=== PATIENT | female | born 1940 | race Caucasian/White ===

== ENCOUNTER 2019-08-18 10:37 | Emergency (ER) | payer OTHER ==
[2019-08-18 11:15] VITALS: BP 93/52
--- NOTE | 2019-08-18 12:15 | UC ---
Skin Complaint HPI - HPI Summary HPI Summary: patient had second Shingrix vacc 4 days ago () and by that night her arm was starting to get red at injection site over next 2 days she developed fever and redness/swelling/warmth got worse she did not have an issue with first Shingrix inj she has had cellulitis in past that cleared with clindamycin and Bactroban ointment - History of Current Complaint Chief Complaint: [facility] Time Seen by Provider: 08/18/19 12:05 Stated Complaint: ARM INJURY AFTER INJECTION Hx Obtained From: Patient Onset/Duration: Gradual Onset Current Severity: None Pain Intensity: 0 Aggravating Factor(s): Touch Alleviating Factor(s): Nothing Associated Signs & Symptoms: Positive: Fever. Negative: Numbness, Weakness, Chills - Allergy/Home Medications Allergies/Adverse Reactions: Allergies Allergy/AdvReac Type Severity Reaction Status Date / Time doxycycline Allergy See Comment Verified 08/18/19 11:16 typhoid vaccine Allergy See Comment Verified 08/18/19 11:16 furadantoin AdvReac Nausea And Uncoded 08/18/19 11:16 Vomiting Home Medications: Home Medications ALPRAZolam TAB* [Xanax TAB*] 0.25 mg PO BEDTIME PRN 08/18/19 [History Confirmed 08/18/19] Cyanocobalamin TAB* [Vitamin B12 TAB*] 500 mcg PO DAILY 08/18/19 [History Confirmed 08/18/19] PMH/Surg Hx/FS Hx/Imm Hx Previously Healthy: Yes Psychological History: Anxiety - Surgical History Surgical History: Yes Surgery Procedure, Year, and Place: laminectomy - Family History Known Family History: Positive: Other - NONCONTRIBUTORY - Social History Occupation: Retired Lives: With Family Alcohol Use: Weekly Substance Use Type: None Smoking Status (MU): Never Smoked Tobacco Review of Systems All Other Systems Reviewed And Are Negative: Yes Constitutional: Positive: Fever - "seems better today" Respiratory: Positive: Negative Cardiovascular: Positive: Negative Neurological: Positive: Negative Psychological: Positive: Negative Is Patient Immunocompromised?: No Physical Exam Triage Information Reviewed: Yes Appearance: Well-Appearing, No Pain Distress, Well-Nourished Vital Signs: Initial Vital Signs Temp 98.3 F 08/18/19 11:12 Pulse 83 08/18/19 11:12 Resp 16 08/18/19 11:12 BP 93/52 08/18/19 11:12 Pulse Ox 99 08/18/19 11:12 Vital Signs Reviewed: Yes Respiratory Exam: Normal Respiratory: Positive: Lungs clear Cardiovascular Exam: Normal Cardiovascular: Positive: RRR Neurological Exam: Normal Neurological: Positive: Alert Psychological Exam: Normal Skin Exam: Other - large area swelling, erythema, warmth L triceps, mildly tender to touch, no streaking Course/Dx - Differential Diagnoses - Skin Complaint Differential Diagnoses: Abscess, Allergic Reaction, Cellulitis, Medication; Adverse Reaction - Diagnoses Provider Diagnosis: Cellulitis Discharge ED - Sign-Out/Discharge Documenting (check all that apply): Patient Departure All imaging exams completed and their final reports reviewed: No Studies - Discharge Plan Condition: Good Disposition: HOME Prescriptions: Clindamycin HCl 150 mg PO TID #21 capsule Patient Education Materials: Cellulitis (ED) Referrals: Christelle Cordova MD [Primary Care Provider] - 2 Days (if no better) Additional Instructions: start antibiotic and take as directed also apply your Mupirocin ointment twice a day use warm packs to affected area - Billing Disposition and Condition Condition: GOOD Disposition: Home
== END 2019-08-18 12:23 | disposition home or self-care (01) ==
LOC: UCEAST 10:37
DX: L03.114 Cellulitis of left upper limb (principal); F41.9 Anxiety disorder, unspecified; Z88.1 Allergy status to other antibiotic agents; Z88.8 Allergy status to other drugs, medicaments and biological substances; Z88.7 Allergy status to serum and vaccine; Z79.899 Other long term (current) drug therapy
CPT/HCPCS: 99212; G0463